=== PATIENT | male | born 1950 | race Caucasian/White ===

== ENCOUNTER → 2018-03-31 | Outpatient (CLI) | payer MEDICARE, BC ==
--- NOTE | 2018-03-31 09:31 | XR ---
EXAMINATION TYPE: XR chest 2V DATE OF EXAM: 03/31/2018 COMPARISON: 09/15/2014 HISTORY: Shortness of breath TECHNIQUE: Frontal and lateral views of the chest are obtained. FINDINGS: Scattered senescent parenchymal changes noted. Hyperinflation compatible with COPD. No evidence for infiltrate. No evidence for atelectasis. Heart size is stable. Mediastinal structures are stable and grossly unremarkable. No evidence for hilar prominence. Degenerative changes dorsal spine. IMPRESSION: 1. No evidence for acute pulmonary disease.
== END ==
LOC: RADXRMAIN 08:45
PROVIDERS: ATTEND Physician Assistant
DX: R05 Cough (principal)
CPT/HCPCS: 71046

== ENCOUNTER → 2018-09-30 | Outpatient (CLI) | payer MEDICARE, BC ==
--- NOTE | 2018-09-30 12:22 | XR ---
EXAMINATION TYPE: XR spine complete AP and Lat DATE OF EXAM: 09/30/2018 COMPARISON: NONE HISTORY: Pain TECHNIQUE: Three views of the cervical spine are submitted. FINDINGS: The cervical spine is visualized in its entirety from C1 thru the top of T1 level. It is s atisfactory in alignment without evidence of acute fracture or dislocation. The pre-vertebral soft t issue appears within normal limits. The C1-C2 articulation is unremarkable on the open mouth view. Generative changes C5-6 and C6-7 with disc space narrowing and mild spondylosis. IMPRESSION: No acute fracture or dislocation is seen in the cervical spine. THORACIC SPINE 2 VIEWS. TECHNIQUE: Frontal, lateral, and swimmer's view of thoracic spine are obtained. COMPARISON: None. FINDINGS: Thoracic spine show satisfactory alignment without evidence of acute fracture or dislocatio n. Vertebral body heights are preserved. Scattered degenerative disc space narrowing and spondylos is. Visualized ribs are unremarkable. IMPRESSION: No acute fracture or dislocation is seen in the thoracic spine. Scattered degenerative di sc space narrowing and spondylosis. LUMBAR SPINE X-RAY: TECHNIQUE: Three views of the lumbar spine are submitted. COMPARISON: None. FINDINGS: There are 5 lumbar type vertebral bodies identified. The lumbar spine shows satisfactory alignment without evidence of acute fracture or dislocation. Vertebral body heights are within normal limits. [id number] degenerative disc space narrowing and spondylosis identified throughout. The overlying soft tissue appears unremarkable. IMPRESSION: No acute fracture or dislocation is seen in the lumbar spine. ICD 10 NO FRACTURE, INITIA L EVALUATION
== END | disposition home or self-care (01) ==
LOC: RADXRMAIN 11:49
PROVIDERS: ATTEND Family Medicine
DX: R52 Pain, unspecified (principal)
CPT/HCPCS: 72082

== ENCOUNTER → 2020-04-24 | Outpatient (CLI) | payer MEDICARE ==
--- NOTE | 2020-04-24 10:59 | XR ---
EXAMINATION TYPE: XR ribs RT w pa chest xray DATE OF EXAM: 04/24/2020 COMPARISON: 03/31/2018 INDICATION: Pleurodynia TECHNIQUE: Single frontal view of the chest is obtained. 2 view right ribs is performed. FINDINGS: The heart size is normal. The pulmonary vasculature is normal. Some minimal platelike atelectasis at the left diaphragm. No acute displaced right rib fractures are evident. Note is made of spondylosis through the thoracic spine. No pneumothorax is evident. IMPRESSION: 1. Normal right ribs 2. Left basilar plate atelectasis
== END | disposition home or self-care (01) ==
LOC: RADXRMAIN 09:05
PROVIDERS: ATTEND Nurse Practitioner Family
DX: J98.11 Atelectasis (principal)

== ENCOUNTER → 2020-05-06 | Outpatient (CLI) | payer MEDICARE ==
--- NOTE | 2020-05-06 13:37 | XR ---
EXAMINATION TYPE: XR chest 2V DATE OF EXAM: 05/06/2020 COMPARISON: 04/24/2020 HISTORY: 69-year-old male J98.11, atelectasis TECHNIQUE: Frontal and lateral views FINDINGS: Heart upper limits of normal in size. Aorta and pulmonary vasculature within normal limits. Some stra ndy atelectasis or scarring at the left base and also along the anterior mid lung on the lateral view . No consolidation or pleural effusion. IMPRESSION: Some strandy atelectasis left base and anterior midlung. No acute process seen.
== END | disposition home or self-care (01) ==
LOC: RADXRMAIN 11:19
PROVIDERS: ATTEND Family Medicine
DX: J98.11 Atelectasis (principal)
CPT/HCPCS: 71046

== ENCOUNTER → 2020-10-12 | Outpatient (CLI) | payer MEDICARE ==
--- NOTE | 2020-10-12 10:31 | XR ---
EXAMINATION TYPE: XR chest 2V DATE OF EXAM: 10/12/2020 COMPARISON: 05/06/2020 HISTORY: Shortness of breath. TECHNIQUE: Frontal and lateral views of the chest are obtained. FINDINGS: There is no focal air space opacity, pleural effusion, or pneumothorax seen. The cardiac silhouette size is within normal limits. The osseous structures are intact. IMPRESSION: No acute cardiopulmonary process.
== END | disposition home or self-care (01) ==
LOC: RADXRMAIN 10:09
PROVIDERS: ATTEND Family Medicine
DX: R06.02 Shortness of breath (principal)
CPT/HCPCS: 71046

== ENCOUNTER 2022-03-07 09:47 | Emergency (ER) | payer MEDICARE ==
[2022-03-07 10:37] VITALS: BP 169/76; PULSE 63; RESP 20; TEMP 98.2
--- NOTE | 2022-03-07 13:09 | ED ---
General Adult HPI - General Chief complaint: Back Pain/Injury Stated complaint: back pain Time Seen by Provider: 03/07/22 12:06 Source: patient, RN notes reviewed Mode of arrival: ambulatory Limitations: no limitations - History of Present Illness Initial comments: Patient is a pleasant 71-year-old male presenting to the emergency Department with right-sided lower rib pain. Onset of symptoms was less than a week ago. Patient is getting over recent bronchitis. Patient has no symptoms of bronchitis still over has had this discomfort that is ongoing. Patient does have pain medicine at home that does help some. No dyspnea. No leg pain or leg swelling. No history of similar symptoms previously. Patient refuses pain medication at this time. - Related Data Home Medications Medication Instructions Recorded Confirmed HYDROcodone/APAP 7.5-325MG [Ford 1 tab PO QID PRN 04/28/16 03/07/22 7.5-325] Levocetirizine Dihydrochloride 5 mg PO HS 04/28/16 03/07/22 [Xyzal] PARoxetine [Paxil] 20 mg PO DAILY 04/28/16 03/07/22 Tamsulosin HCl [Flomax] 0.4 mg PO HS 04/28/16 03/07/22 methocarbamoL [Robaxin-750] 750 mg PO QID PRN 04/28/16 03/07/22 Fluticasone/Umeclidin/Vilanter 1 puff INHALATION RT-DAILY 03/07/22 03/07/22 [Trelegy Ellipta 100-62.5-25] Furosemide [Lasix] 40 mg PO DAILY 03/07/22 03/07/22 Hydrocortisone Cream 1 applic TOPICAL BID PRN 03/07/22 03/07/22 [Hydrocortisone 2.5% Cream] Metoprolol Tartrate [Lopressor] 12.5 mg PO BID 03/07/22 03/07/22 Olmesartan [Benicar] 20 mg PO DAILY 03/07/22 03/07/22 metFORMIN HCL [Glucophage] 500 mg PO BID 03/07/22 03/07/22 Previous Rx's Medication Instructions Recorded Atorvastatin [Lipitor] 80 mg PO HS #30 tab 04/30/16 Allergies Allergy/AdvReac Type Severity Reaction Status Date / Time No Known Allergies Allergy Verified 03/07/22 13:13 Review of Systems ROS Statement: Those systems with pertinent positive or pertinent negative responses have been documented in the HPI. ROS Other: All systems not noted in ROS Statement are negative. Constitutional: Denies: fever Eyes: Denies: eye pain ENT: Denies: ear pain Respiratory: Reports: as per HPI Cardiovascular: Denies: chest pain Endocrine: Denies: fatigue Gastrointestinal: Denies: abdominal pain Genitourinary: Denies: dysuria Musculoskeletal: Reports: other (Discomfort right lower lateral ribs) Skin: Denies: rash Neurological: Denies: weakness Past Medical History Past Medical History: Coronary Artery Disease (CAD), Chest Pain / Angina, Hyperlipidemia, Hypertension, Myocardial Infarction (non Q-wave), Skin Disorder Additional Past Medical History / Comment(s): renal failure this admission. ct report from jan 2016 kidney stone &fatty liver Last Myocardial Infarction Date:: 04/27/2016 History of Any Multi-Drug Resistant Organisms: None Reported Past Surgical History: Back Surgery, Hernia Repair, Tonsillectomy Additional Past Surgical History / Comment(s): cyst removed from neck,head and back. umbilical hernia repair. back surgery (percutaneous disectomy L3-4-5 in 1989) parotidectomy 1994. lower eye lid surgery to remove ca 2014. sinus surgery for deviated septum Past Anesthesia/Blood Transfusion Reactions: No Reported Reaction Past Psychological History: Anxiety Smoking Status: Never smoker Past Alcohol Use History: None Reported Past Drug Use History: None Reported General Exam Limitations: no limitations General appearance: alert, in no apparent distress Head exam: Present: normocephalic Eye exam: Present: normal appearance Respiratory exam: Present: normal lung sounds bilaterally, other (Entered his right lower lateral rib) Cardiovascular Exam: Present: regular rate, normal rhythm GI/Abdominal exam: Present: soft. Absent: tenderness Extremities exam: Present: normal inspection. Absent: pedal edema, calf tenderness Neurological exam: Present: alert Psychiatric exam: Present: normal affect, normal mood Skin exam: Present: normal color Course Vital Signs 03/07/22 10:29 Temperature 98.2 F Pulse Rate 63 Respiratory 20 Rate Blood Pressure 169/76 O2 Sat by Pulse 92 L Oximetry Medical Decision Making - Medical Decision Making Patient reevaluated and updated. - Lab Data Result diagrams: 03/07/22 13:06 Lab Results 03/07/22 03/07/22 Range/Units 13:06 13:06 D-Dimer 0.54 (<0.60) mg/L FEU Sodium 140 (137-145) mmol/L Potassium 4.4 (3.5-5.1) mmol/L Chloride 98 (98-107) mmol/L Carbon Dioxide 31 H (22-30) mmol/L Anion Gap 11 mmol/L BUN 21 H (9-20) mg/dL Creatinine 0.70 (0.66-1.25) mg/dL Est GFR (CKD-EPI)AfAm >90 (>60 ml/min/1.73 sqM) Est GFR (CKD-EPI)NonAf >90 (>60 ml/min/1.73 sqM) Glucose 84 (74-99) mg/dL Calcium 9.0 (8.4-10.2) mg/dL - Radiology Data Radiology results: image reviewed (Chest x-ray shows no acute process) Disposition Clinical Impression: Chest wall pain Disposition: HOME SELF-CARE Condition: Stable Instructions (If sedation given, give patient instructions): Chest Wall Pain (ED) Additional Instructions: Please follow-up with primary care physician in the beginning of the week as planned. Return for fever, increased pain, difficulty breathing, worsening or changing symptoms or other concerns. Is patient prescribed a controlled substance at d/c from ED?: No Referrals: [place] MD [Primary Care Provider] - 1-2 days Time of Disposition: 13:58
--- NOTE | 2022-03-07 13:25 | XR ---
EXAMINATION TYPE: XR chest 2V DATE OF EXAM: 03/07/2022 1:21 PM COMPARISON: Chest radiographs from 10/12/2020. TECHNIQUE: XR chest 2V Frontal and lateral views of the chest. CLINICAL INDICATION:Male, 71 years old with history of pain rll; FINDINGS: Lungs/Pleura: There is no evidence of pleural effusion, focal consolidation, or pneumothorax. Streak y scarring and/or atelectasis in the left costophrenic angle. Pulmonary vascularity: Unremarkable. Heart/mediastinum: Cardiomediastinal silhouette is unremarkable. Musculoskeletal: No acute osseous pathology. IMPRESSION: No acute cardiopulmonary disease/process. No significant change in prior examination.
[2022-03-07 13:27] LABS: African American GFR (CKD) >90 (>60 ml/min/1.73 sqM); Anion Gap 11 mmol/L; Blood Urea Nitrogen 21 mg/dL (9-20); Carbon Dioxide 31 mmol/L (22-30); Chloride 98 mmol/L (98-107); Glucose 84 mg/dL (74-99); Non-African American GFR(CKD) >90 (>60 ml/min/1.73 sqM); Sodium 140 mmol/L (137-145)
[2022-03-07 13:28] LABS: Potassium 4.4 mmol/L (3.5-5.1)
== END 2022-03-07 14:06 | disposition home or self-care (01) ==
LOC: EC 09:47
DX: R07.89 Other chest pain (principal); I25.10 Atherosclerotic heart disease of native coronary artery without angina pectoris; E78.5 Hyperlipidemia, unspecified; I10 Essential (primary) hypertension; I25.2 Old myocardial infarction; Z79.899 Other long term (current) drug therapy
CPT/HCPCS: 36415; 71046; 80048; 85379; 99283

== ENCOUNTER → 2023-02-20 | Outpatient (CLI) | payer MEDICARE ==
--- NOTE | 2023-02-20 09:47 | XR ---
5 view lumbar spine. DATE: 02/20/2023. COMPARISON: None available. CLINICAL HISTORY: Lower back pain. FINDINGS: The vertebral bodies are well aligned without evidence of fracture, subluxation or dislocation. The vertebral body heights are maintained. There is mild multilevel degenerative disc changes seen throughout the entire lumbar spine as well as degenerative facet arthropathy. There is more moderate to significant degenerative disc space narrow ing at L5-S1. There is moderate vascular calcification otherwise seen throughout the abdominal aorta. IMPRESSION: Degenerative changes with no acute osseous abnormalities.
[2023-02-20 16:33] LABS: Basophils # (A) 0.04 X 10*3/uL (0.00-0.10); Basophils % (A) 0.6 %; Eosinophils # (A) 0.07 X 10*3/uL (0.04-0.35); HCT 44.1 % (39.6-50.0); HGB 14.3 d/dL (13.0-17.0); Lymphocytes # (A) 1.54 X 10*3/uL (0.90-5.00); Lymphocytes % (A) 21.9 %; MCH 31.4 pg (27.0-32.0); MCHC 32.4 d/dL (32.0-37.0); MCV 96.9 FL (80.0-97.0); Mean Platelet Volume 10.6 FL (9.5-12.2); Monocytes # (A) 0.66 X 10*3/uL (0.20-1.00); Monocytes % (A) 9.4 %; NRBC Per 100 WBC 0 X 10*3/uL (0.00-0.01); Neutrophils # (A) 4.69 X 10*3/uL (1.80-7.70); Neutrophils % (A) 66.5 %; Platelet Count 227 X 10*3/uL (140-440); RBC 4.55 X 10*6/uL (4.40-5.60); RDW 12.3 % (11.5-14.5); WBC 7.04 X 10*3/uL (4.50-10.00)
[2023-02-20 17:48] LABS: ALT 37 U/L (10-49); AST 23 U/L (14-35); Albumin 4.5 d/dL (3.8-4.9); Albumin/Globulin Ratio 2.14 Ratio (1.60-3.17); Alkaline Phosphatase 129 U/L (41-126); Blood Urea Nitrogen 21.2 mg/dL (9.0-27.0); Calcium 9.8 mg/dL (8.7-10.3); Carbon Dioxide 30.1 mmol/L (21.6-31.8); Chloride 102 mmol/L (96-109); Globulin 2.1 d/dL (1.6-3.3); Glucose 97 mg/dL (70-110); Potassium 4.8 mmol/L (3.5-5.5); Sodium 144 mmol/L (135-145); Total Bilirubin 0.8 mg/dL (0.3-1.2); Total Protein 6.6 d/dL (6.2-8.2)
== END | disposition home or self-care (01) ==
LOC: RADXRMAIN 09:18
PROVIDERS: ATTEND Family Medicine
DX: M51.36 Other intervertebral disc degeneration, lumbar region (principal); M47.817 Spondylosis without myelopathy or radiculopathy, lumbosacral region; E11.69 Type 2 diabetes mellitus with other specified complication
CPT/HCPCS: 72110; 80053; 83036; 85025

== ENCOUNTER → 2023-03-27 | Outpatient (CLI) | payer MEDICARE ==
[2023-03-27 11:28] LABS: African American GFR (CKD) >90 (>60 ml/min/1.73 sqM); Blood Urea Nitrogen 21 mg/dL (9-20); Non-African American GFR(CKD) >90 (>60 ml/min/1.73 sqM)
--- NOTE | 2023-03-27 12:37 | CT ---
EXAMINATION TYPE: CT abdomen pelvis w con CT DLP: 2730.60 mGycm, Automated exposure control for dose reduction was used. DATE OF EXAM: 03/27/2023 12:17 PM COMPARISON: 01/05/2016 CLINICAL INDICATION:Male, 72 years old with history of R10.9 UNSPECIFIED ABDOMINAL PAIN; abdominal an d back pain left side TECHNIQUE: Axial CT of the ;CT abdomen pelvis w con;Sagittal and coronal reformats were created on a separate workstation. Contrast used:100 mL of Isovue 300 with IV Contrast, (none if empty) Oral contrast used: with Oral Contrast (none if empty) FINDINGS: LOWER CHEST: Mild cardiomegaly. Lipomatous hypertrophy of interatrial septum. ABDOMEN LIVER: Diffusely hypoattenuating parenchyma. There is an area of arterial phase enhancement near the right hepatic lobe segment 6 measuring 2.3 x 1.6 cm. This smaller compared to 2016 and likely benign where it measured 3.0 x 3.4 cm. GALLBLADDER AND BILE DUCTS: Unremarkable. PANCREAS: Unremarkable. SPLEEN: Unremarkable. ADRENAL GLANDS: Unremarkable. KIDNEYS AND URETERS: Simple appearing right renal cyst. No obstructing 2 mm right calculus no left si ded renal calculi present. PELVIS BLADDER: Fatty deposition within the urinary bladder wall. Suspected bladder stone in the urinary sada dder or wall measuring up to 7 mm. Mild trabeculation of bladder wall. REPRODUCTIVE: Prostate is enlarged in size measuring 5.6 cm in transverse dimension. ABDOMEN & PELVIS STOMACH AND BOWEL: No evidence of bowel obstruction. Scattered colonic diverticula are present. PERITONEUM/RETROPERITONEUM: No evidence of pneumoperitoneum or free fluid. VASCULATURE: Mild atherosclerotic calcifications are present throughout the abdominal aorta and its b ranches. No evidence of aortic aneurysm. MUSCULOSKELETAL: No acute osseous abnormalities. Moderate disc degeneration changes are present throu ghout the thoracolumbar spine. LYMPH NODES: No gross evidence for lymphadenopathy. SOFT TISSUE/ABDOMINAL WALL: Fat-containing inguinal hernias bilaterally. IMPRESSION: 1. No evidence for acute abdominal process. 2. Suspected bladder stone in the urinary bladder or wall measuring up to 7 mm. Loma to be away from the left-sided ureterovesicular junction. Given trabeculation of the bladder wall correlate for lunchroom mother aubree bladder outlet obstruction prostatomegaly. 3. Nonobstructing right renal calculus. 4. Decreasing size of right hepatic lobe inferior aspect lesion which is arterial phase enhancing. F indings favor hemangioma. This can be completely characterized with MRI abdomen with IV contrast if c linically warranted. 5. Hepatic steatosis. 6. Colonic diverticulosis. 7. Bilateral fat-containing inguinal hernias. 8. Prostatomegaly, correlate with serum PSA. 9. Mild cardiomegaly.
== END | disposition home or self-care (01) ==
LOC: RADCTMAIN 10:12
PROVIDERS: ATTEND Family Medicine
DX: K76.0 Fatty (change of) liver, not elsewhere classified (principal); K57.30 Diverticulosis of large intestine without perforation or abscess without bleeding; K40.20 Bilateral inguinal hernia, without obstruction or gangrene, not specified as recurrent; N40.0 Benign prostatic hyperplasia without lower urinary tract symptoms; I51.7 Cardiomegaly; N20.0 Calculus of kidney; N32.89 Other specified disorders of bladder
CPT/HCPCS: 82565; 84520; 74177; 36415; Q9967